=== PATIENT | male | born 1975 | race Caucasian/White ===

== ENCOUNTER 2020-06-13 15:14 | Emergency (ER) | payer SELFPAY ==
[2020-06-13 15:48] LABS: #Basophils 0.1 thou/uL (0.0-0.2); #Eosinphils 0.5 thou/uL (0.0-0.7); #Lymphocytes 1.7 thou/uL (1.20-3.40); #Monocytes 0.5 thou/uL (0.11-0.59); %Lymphocytes 22.2 % (21.0-51.0); %Monocytes 6.8 % (0.0-10.0); %Neutrophils 63.9 % (42.0-75.0); Hemoglobin 13.8 g/dL (14.0-18.0); Mean Corpuscular HGB CONC 31.5 g/dL (32.0-36.0); Mean Corpuscular Volume 89.2 fL (78.0-98.0); Mean Platelet Volume 6.8 fL (7.4-10.4); Platelet Count 289 thou/uL (130-400); RBC Distribution Width 12.5 % (11.5-14.5); Red Blood Cell (RBC) Count 4.92 mill/uL (4.70-6.10); White Blood Cell (WBC) Count 7.8 thou/uL (4.8-10.8)
[2020-06-13 16:04] LABS: ALT (SGPT) 43 U/L (8-55); AST (SGOT) 43 U/L (5-34); Albumin 3.6 g/dL (3.5-5.0); Alkaline Phosphatase 126 U/L (40-110); Anion Gap 14 mmol/L (10-20); BUN (Urea Nitrogen) 27 mg/dL (8.9-20.6); Bilirubin, Total 1.2 mg/dL (0.2-1.2); Calc. Creatinine Clearance 0 mL/min (70-130); Calcium 8.4 mg/dL (7.8-10.44); Carbon Dioxide 28 mmol/L (22-29); Chloride 100 mmol/L (98-107); Globulin 3.4 g/dL (2.4-3.5); Glucose 123 mg/dL (70-105); Lipase 12 U/L (8-78); Magnesium 1.5 mg/dL (1.6-2.6); Potassium 3.3 mmol/L (3.5-5.1); Sodium 139 mmol/L (136-145)
[2020-06-13] MEDS ORDERED: Nitroglycerin 2% Ointment 1 INCH/1 GM Packet ONE (16:05)
[2020-06-13] MEDS ORDERED: Aspirin Chewable 81 MG TAB ONE (16:05)
[2020-06-13] MEDS ORDERED: Furosemide 40 MG/4 ML VIAL ONE (16:31)
[2020-06-13 16:42] LABS: CKMB 6.7 ng/mL (0-6.6)
== END 2020-06-13 17:00 | disposition left against medical advice (07) ==
LOC: NAV ERS 15:14
DX: I11.0 Hypertensive heart disease with heart failure (principal); I50.9 Heart failure, unspecified; E87.6 Hypokalemia; F17.210 Nicotine dependence, cigarettes, uncomplicated
CPT/HCPCS: 71045; 80053; 82553; 83605; 83690; 83735; 83880; 84443; 84484; 85025; 85379; 93005; 94760; 96374; J1940

== ENCOUNTER 2020-07-05 14:46 | Emergency (ER) | payer OTHER, SELFPAY ==
[2020-07-05] MEDS ORDERED: Aspirin Chewable 81 MG TAB ONE (15:22)
[2020-07-05] MEDS ORDERED: Nitroglycerin 0.4 MG TAB (25 Tab Bottle) ONE (15:22)
[2020-07-05] MEDS ORDERED: Sodium Chloride 0.9% 1,000 ML ONE (15:22)
[2020-07-05 15:31] LABS: #Basophils 0.1 thou/uL (0.0-0.2); #Eosinphils 0.3 thou/uL (0.0-0.7); #Lymphocytes 1.7 thou/uL (1.20-3.40); #Monocytes 0.4 thou/uL (0.11-0.59); #Neutrophils 5.5 thou/uL (1.40-6.50); %Basophils 1.2 % (0.0-1.0); %Eosinophils 3.4 % (0.0-10.0); %Lymphocytes 21.5 % (21.0-51.0); %Monocytes 5.1 % (0.0-10.0); %Neutrophils 68.8 % (42.0-75.0); Hemoglobin 13.8 g/dL (14.0-18.0); Mean Corpuscular HGB CONC 29.8 g/dL (32.0-36.0); Mean Corpuscular Hemoglobin 26.1 pg (27.0-31.0); Mean Corpuscular Volume 87.7 fL (78.0-98.0); Mean Platelet Volume 6.7 fL (7.4-10.4); Platelet Count 333 thou/uL (130-400); Red Blood Cell (RBC) Count 5.28 mill/uL (4.70-6.10)
[2020-07-05 15:43] LABS: ALT (SGPT) 26 U/L (8-55); AST (SGOT) 39 U/L (5-34); Albumin 3.4 g/dL (3.5-5.0); Alcohol Less than 10 mg/dL (Less than 10); Alkaline Phosphatase 119 U/L (40-110); Anion Gap 16 mmol/L (10-20); BUN (Urea Nitrogen) 25 mg/dL (8.9-20.6); Bilirubin, Total 1.4 mg/dL (0.2-1.2); Calc. Creatinine Clearance 0 mL/min (70-130); Calcium 7.9 mg/dL (7.8-10.44); Carbon Dioxide 27 mmol/L (22-29); Chloride 94 mmol/L (98-107); Globulin 3.7 g/dL (2.4-3.5); Glucose 143 mg/dL (70-105); Potassium 3.1 mmol/L (3.5-5.1); Protein, Total 7.1 g/dL (6.0-8.3); Sodium 134 mmol/L (136-145)
[2020-07-05 16:00] LABS: CKMB 6.4 ng/mL (0-6.6)
[2020-07-05] MEDS ORDERED: Furosemide 20 MG/2 ML VIAL ONE (17:07)
[2020-07-05] MEDS ORDERED: Labetalol HCl 100 MG/20 ML VIAL ONE (17:46)
[2020-07-05] MEDS ORDERED: Lisinopril 10 MG TAB ONE (17:46)
[2020-07-05 18:55] LABS: Bilirubin Negative (Negative); Blood, Urine Trace (Negative); Clarity Clear (Clear); Glucose, Urine (Dipstick) Negative (Negative); Ketone, Urine Negative (Negative); Leukocyte Negative (Negative); Nitrite Negative (Negative); Protein, Urine (Dipstick) 30 mg/dL (Neg-Trace); Urobilinogen 0.2 mg/dL (Less than 2)
[2020-07-05 18:56] LABS: Bacteria/HPF None Seen HPF (None Seen); RBC/HPF 0-3 HPF (0-3); Squamous Epithelial 0-3 HPF (0-3); WBC/HPF None Seen HPF (0-3)
[2020-07-05 19:05] LABS: Amphetamine Detected (NotDetected); Barbiturates Screen Not Detected (NotDetected); Benzodiazepine Screen Not Detected (NotDetected); Cocaine Metabolite Screen Not Detected (NotDetected); Medtox Control Line Valid? VALID (VALID); Methadone Not Detected (NotDetected); Methamphetamine Detected (NotDetected); Opiate Screen Detected (NotDetected); Oxycodone Screen Not Detected (NotDetected); Phencyclidine (PCP) Not Detected (NotDetected); THC/Cannabinoid Screen Not Detected (NotDetected); Tricyclic Screen Not Detected (NotDetected)
[2020-07-05] MEDS ORDERED: Nitroglycerin 2% Ointment 1 INCH/1 GM Packet ONE (19:46)
[2020-07-05 20:12] LABS: SARS-CoV-2 NAA Rapid Test Not Detected (NotDetected)
== END 2020-07-05 20:05 | disposition left against medical advice (07) ==
LOC: NAV ERS 14:46
DX: I11.0 Hypertensive heart disease with heart failure (principal); I50.9 Heart failure, unspecified; I16.0 Hypertensive urgency; F17.210 Nicotine dependence, cigarettes, uncomplicated; Z20.822 Contact with and (suspected) exposure to COVID-19
CPT/HCPCS: 0240U; 36415; 71045; 80053; 80306; 80307; 81003; 81015; 82553; 83880; 84484; 85025; 85379; 93005; 96374; 96375; 96376; J1940; J7050